=== PATIENT | female | born 1980 | race Caucasian/White ===

== ENCOUNTER 2016-12-19 08:00 | Outpatient (RCR) | payer BC ==
[~2016-12-19 08:00] MED LIST: CELEXA 20MG20 MG/TAB PO; SYNTHROID0.088 MG/T PO
== END 2017-02-19 | disposition home or self-care (01) ==
LOC: MKS.ESL.PT
DX: N94.19 Other specified dyspareunia (principal)

== ENCOUNTER 2017-10-11 01:20 | Outpatient (CLI) | payer BC ==
[~2017-10-11] VITALS: Ht 162.6 cm; Wt 69.5 kg
[2017-10-11 01:37] VITALS: BP 121/66; PULSE 62; TEMP 97.4
[2017-10-11] MEDS ORDERED: TIROSINT100 MC1 PO (01:44)
[2017-10-11 02:00] VITALS: BP 124/68; PULSE 57
[2017-10-11 02:45] VITALS: BP 108/64; PULSE 58
== END 2017-10-11 03:00 | disposition home or self-care (01) ==
LOC: LDRO 01:20
DX: O62.9 Abnormality of forces of labor, unspecified (principal); Z3A.37 37 weeks gestation of pregnancy